=== PATIENT | female | born 1945 ===

== ENCOUNTER 2018-08-08 19:53 | Emergency (ER) | payer MEDICARE, MEDICAID ==
[2018-08-08 20:51] VITALS: RESP 16
[2018-08-08] MEDS ORDERED: Lidocaine 1% Inj (20ml) IJ ONE (21:00)
[2018-08-08] MEDS ORDERED: Povidone Iodine Topical 10% Sol ONE (21:01)
[2018-08-08] MEDS ORDERED: Lidocaine Hydrochloride 1% 10 ML ONE (21:02)
[2018-08-08] MEDS: Tdap Vaccine 0.5 ml Vial (10-64 yrs) IM ONE (21:03)
--- NOTE | 2018-08-08 21:18 | ED PDOC ---
Upper Extremity Pain/Injury Time Seen by Provider: 08/08/18 20:53 Chief Complaint (Nursing): Upper Extremity Problem/Injury History Per: Patient Additional Complaint(s): Pt. states earlier today a window accidentally closed on her L 2nd digit causing a laceration. Denies numbness, tingling. Of note, pt. states she is allergic to both PCN and erythromycin. Past Medical History Reviewed: Historical Data, Nursing Documentation, Vital Signs Vital Signs: Last Vital Signs Temp 97.7 F 08/08/18 20:50 Pulse 70 08/08/18 20:50 Resp 16 08/08/18 20:50 BP 120/66 08/08/18 20:50 Pulse Ox 98 08/08/18 20:50 Primary Care Provider: Ken Toribio - Surgical History Surgical History: No Surg Hx - Family History Family History: States: No Known Family Hx - Immunization History Hx Tetanus Toxoid Vaccination: No - Home Medications Home Medications: Ambulatory Orders Medication Instructions Recorded Clindamycin [Cleocin] 300 mg PO TID #20 cap 08/08/18 - Allergies Allergies/Adverse Reactions: Allergies Allergy/AdvReac Type Severity Reaction Status Date / Time No Known Allergies Allergy Verified 08/08/18 20:52 Review of Systems ROS Statement: Except As Marked, All Systems Reviewed And Found Negative Physical Exam - Physical Exam Appears: Positive for: Well, Non-toxic, No Acute Distress Skin: Positive for: Normal Color, Warm. Negative for: Rash Eye Exam: Positive for: Normal appearance Pulses-Radial (L): 2+ Pulses-Radial (R): 2+ Extremity: Positive for: Other (L 2nd digit with 1.5cm J shaped flap laceration on distal phalanx without active bleeding; FROM actively of L 2nd digit; distal sensation intact of L 2nd digit) Neurological/Psych: Positive for: Awake, Alert, Oriented (x3) - ECG O2 Sat by Pulse Oximetry: 98 - Radiology X-Ray: Interpreted by Me (L 2nd digit x-ray) - Progress ED Course And Treament: Tetanus prophylaxis administered. Case d/w Humphrey ANNE who recommends Dr. Avina (hand) for consult. Case d/w Dr. Avina who recommends irrigation of wound, ED laceration closure with monocryl, clindamycin Rx, and f/u in his office on Wednesday. Pt. informed of plan and agrees. Clindamycin 300mg PO ordered. Procedures - Time-Out Type of Procedure: Laceration repari Site of Procedure: L 2nd digit Correct Patient: Yes Correct Procedure: Yes Correct Site Marked: Yes X-Ray Marked: Yes - Laceration/Wound Repair laceration repair Wound Length (cm): 2 Wound's Depth, Shape: irregular Wound Explored: clean Irrigated w/ Saline (ccs): 1,000 Betadine Prep?: Yes Anesthesia: 1% Lidocaine Volume Anesthetic (ccs): 2 Wound Repaired With: Sutures Number of Sutures: 15 Layer Closure?: No Wound Complexity: Complex Sterile Dressing Applied?: Yes (xerofoam dressing) Splint Applied?: Yes (aluminum finger splint) Disposition - Clinical Impression Clinical Impression: Finger laceration, Finger fracture - Patient ED Disposition Is Patient to be Admitted: No - Disposition Referrals: Allen Avina MD [Medical Doctor] - Disposition: Routine/Home Disposition Time: 21:50 Condition: STABLE Additional Instructions: GO TO DR. AVINA'S OFFICE ON WEDNESDAY WITHOUT FAIL RETURN TO ED IMMEDIATELY IF SYMPTOMS WORSEN Prescriptions: Clindamycin [Cleocin] 300 mg PO TID #20 cap Instructions: Wound Care (DC), Laceration Repair With Stitches (DC), Finger Fracture (DC) Print Language: BRAZILIAN
[2018-08-08 23:10] VITALS: BP 124/67; PULSE 74; TEMP 98.1
[2018-08-08 23:13] VITALS: O2SAT 98
--- NOTE | 2018-08-09 14:47 | RAD ---
Date of service: 08/08/2018 PROCEDURE: Left Index finger radiographs. HISTORY: trauma COMPARISON: None. TECHNIQUE: AP radiograph of the left hand, as well as spot oblique and lateral images of index finger were obtained. 4 views obtained. FINDINGS: LEFT INDEX FINGER: Avulsed fracture fragment distal phalanx. JOINTS: Normal. SOFT TISSUES: Soft tissue swelling attests to the acuity of the fracture. OTHER FINDINGS: None. IMPRESSION: Acute fracture distal phalanx left index finger. No visible foreign body.
== END 2018-08-08 23:15 | disposition home or self-care (01) ==
LOC: H.ER 19:53
DX: S61.211A Laceration without foreign body of left index finger without damage to nail, initial encounter (principal); W23.0XXA Caught, crushed, jammed, or pinched between moving objects, initial encounter; Z23 Encounter for immunization